=== PATIENT | female | born 1930 | race Caucasian/White ===

== ENCOUNTER 2017-03-26 08:10 | Inpatient (IN) | payer MEDICARE, OTHER ==
[~2017-03-26] VITALS: Ht 165.1 cm; Wt 65.2 kg
[~2017-03-26 08:10] MED LIST: CIPR500T87 PO; HYDR1TAB12 PO; LISI-167 PO; MOME13HF2 INH; NEBULIZER INH; TRAM50TA2 PO; [UNRECOGNIZED DRUG - REMARK] PO
[2017-03-26] MEDS ORDERED: SODIUM CHLORIDE 0.9% 1,000 ML IV ONE ×2 (08:37→10:20)
[2017-03-26] MEDS ORDERED: ONDANSETRON 2MG/ML, 2ML ONE (08:55)
[2017-03-26] MEDS ORDERED: SODIUM CHLORIDE FLUSH 10ML SYR IVF ONE (09:00)
[2017-03-26] MEDS ORDERED: SODIUM CHLORIDE 0.9% 1,000ML IVBOLUS ONE ×2 (09:00→10:00)
[2017-03-26] MEDS ORDERED: ONDANSETRON 2MG/ML, 2ML IVPush ONE (09:00)
[2017-03-26 09:12] LABS: ASPARTATE AMINO TRANSFERASE 11 U/L (15-37); BLOOD UREA NITROGEN 78 mg/dL (7-18)
[2017-03-26 09:18] LABS: IS PT STATUS REG ER OR PRE ER? YES
[2017-03-26] MEDS ORDERED: METRONIDAZOLE PMX 500MG/100ML 100 ML ONE (09:56)
[2017-03-26] MEDS ORDERED: METRONIDAZOLE PMX 500MG/100ML 100 ML IVPB ONE (10:00)
[2017-03-26] MEDS ORDERED: CEFEPIME 1 GM in DEXTROSE 5% 100 ML IVPB ONE (10:00)
[2017-03-26] MEDS ORDERED: LIDOCAINE GEL 2%, 5ML ONE (10:22)
[2017-03-26] MEDS ORDERED: SODIUM CHLORIDE FLUSH 10ML SYR IVF PRN (10:30)
[2017-03-26] MEDS ORDERED: SULF1TAB3 PO (10:40)
[2017-03-26] MEDS ORDERED: BUPIVACAINE/PF-EPI 0.25% 1:200K ONE (11:00)
[2017-03-26] MEDS ORDERED: BACITRACIN 50,000 UNIT ONE (11:00)
[2017-03-26] MEDS ORDERED: KETAMINE 10 MG/ML, 20ML ONE (11:17)
[2017-03-26] MEDS ORDERED: FENTANYL PF 250 MCG/5ML ONE (11:18)
[2017-03-26] MEDS ORDERED: MIDAZOLAM 1 MG/ML, 2ML ONE (11:18)
[2017-03-26] MEDS ORDERED: AMIODARONE 50 MG/ML, 3ML ONE (11:37)
[2017-03-26] MEDS ORDERED: MAGNESIUM SULFATE 1 GM/2 ML ONE (11:37)
[2017-03-26] MEDS ORDERED: ALBUMIN HUMAN 5% 0 ML ONE (11:37)
[2017-03-26] MEDS ORDERED: NOREPINEPHRINE 4 MG in SODIUM CHLORIDE 0.9% 246 ML IV PRN (12:30)
[2017-03-26] MEDS ORDERED: hydrALAzine 20 MG/ML, 1ML IV PRN (13:30)
[2017-03-26] MEDS ORDERED: HYDROmorphone 1 MG/ML, 1ML IV PRN (13:30)
[2017-03-26] MEDS ORDERED: ACETAMINOPHEN 325 MG TABLET PO PRN ×2 (13:30→14:30)
[2017-03-26] MEDS ORDERED: LABETALOL 5MG/ML, 20ML IV PRN (13:30)
[2017-03-26] MEDS ORDERED: PROMETHAZINE 25 MG/ML, 1ML IV PRN (13:30)
[2017-03-26] MEDS ORDERED: ONDANSETRON 2MG/ML, 2ML IVPush PRN (13:30)
[2017-03-26] MEDS ORDERED: EPHEDRINE 50 MG/ML, 1ML IVPush PRN (13:30)
[2017-03-26] MEDS ORDERED: FENTANYL PF 100 MCG/2ML IV PRN (13:30)
[2017-03-26] MEDS ORDERED: TEMAZEPAM 15 MG CAPSULE PO PRN (14:30)
[2017-03-26] MEDS ORDERED: POLYETHYLENE GLYCOL 17 GM PACKET PO PRN (14:30)
[2017-03-26] MEDS ORDERED: PLEASE ENTER ALLERGIES MC SCH ×4 (15:00→16:00)
[2017-03-26] MEDS ORDERED: SUCCINYLCHOLINE 20 MG/ML, 10ML ONE (16:07)
[2017-03-26] MEDS ORDERED: EPHEDRINE 50 MG/ML, 1ML ONE (16:07)
[2017-03-26] MEDS ORDERED: PHENYLEPHRINE 10 MG/ML ONE (16:07)
[2017-03-26] MEDS ORDERED: ROCURONIUM 10 MG/ML ONE (16:07)
[2017-03-26] MEDS ORDERED: GLYCOPYRROLATE 0.2MG/1ML ONE (16:07)
[2017-03-26] MEDS ORDERED: NEOSTIGMINE 1 MG/ML, 10ML ONE (16:07)
[2017-03-26] MEDS ORDERED: PROPOFOL 10 MG/ML, 20ML ONE (16:07)
[2017-03-26] MEDS ORDERED: SODIUM BICARB 8.4%, 50ML SYRINGE ONE (16:07)
[2017-03-26] MEDS: morphine SULFATE 10 MG/ML, 1ML IVPush PRN ×3 (17:07→22:44)
[2017-03-26] MEDS: PIPERACILLIN/TAZO/PMX 2.25GM 50 ML IVPB SCH (17:09)
[2017-03-26] MEDS: SODIUM BICARB 8.4%,50ML SYR. 75 MEQ in SODIUM CHLORIDE 0.45% 1,000 ML IV SCH (20:32)
[2017-03-26] MEDS: FAMOTIDINE 20 MG TABLET PO SCH (20:45)
[2017-03-26] MEDS ORDERED: FAMOTIDINE 20 MG TABLET PO SCH (21:00)
[2017-03-26] MEDS: HEPARIN 5,000 UNITS/ML, 1ML SQ SCH (23:25)
[2017-03-27] MEDS: ALBUTEROL/IPRATROPIUM 2.5MG/0.5MG, 3 ML INLINE SCH (00:40)
[2017-03-27] MEDS ORDERED: NOREPINEPHRINE 1 MG/ML, 4ML ONE (01:18)
[2017-03-27] MEDS: morphine SULFATE 10 MG/ML, 1ML IVPush PRN ×3 (01:45→16:57)
[2017-03-27] MEDS: NOREPINEPHRINE 4 MG in SODIUM CHLORIDE 0.9% 246 ML IV PRN ×5 (02:06→22:34)
[2017-03-27] MEDS ORDERED: HYDROmorphone 1 MG/ML, 1ML ONE (02:20)
[2017-03-27] MEDS ORDERED: DIGOXIN 0.25 MG/ML, 2ML ONE (02:21)
[2017-03-27] MEDS ORDERED: DIGOXIN 0.25 MG/ML, 2ML IVPush ONE (02:30)
[2017-03-27] MEDS ORDERED: HYDROmorphone 2 MG/ML, 1ML IVPush PRN (02:30)
[2017-03-27] MEDS: PIPERACILLIN/TAZO/PMX 2.25GM 50 ML IVPB SCH ×5 (02:46→22:37)
[2017-03-27 04:00] VITALS: BP 123/63
[2017-03-27 04:49] LABS: BLOOD UREA NITROGEN 71 mg/dL (7-18)
[2017-03-27 04:53] LABS: ASPARTATE AMINO TRANSFERASE 20 U/L (15-37); TOTAL IRON BINDING CAPACITY 286 mcg/dL (250-450)
[2017-03-27] MEDS: SODIUM BICARB 8.4%,50ML SYR. 75 MEQ in SODIUM CHLORIDE 0.45% 1,000 ML IV SCH ×2 (06:25→08:25)
[2017-03-27] MEDS: HEPARIN 5,000 UNITS/ML, 1ML SQ SCH (09:00)
[2017-03-27] MEDS: SENNA/DOCUSATE TABLET PO SCH (09:00)
[2017-03-27] MEDS ORDERED: KETAMINE 10 MG/ML, 20ML ONE (14:46)
[2017-03-27] MEDS ORDERED: MIDAZOLAM 1 MG/ML, 2ML ONE ×2 (14:46→17:36)
[2017-03-27] MEDS ORDERED: FENTANYL PF 250 MCG/5ML ONE (14:46)
[2017-03-27] MEDS ORDERED: ALBUMIN HUMAN 5% 1,000 ML ONE (15:02)
[2017-03-27] MEDS ORDERED: AMIODARONE 50 MG/ML, 3ML ONE (15:03)
[2017-03-27] MEDS ORDERED: MAGNESIUM SULFATE 1 GM/2 ML ONE (15:03)
[2017-03-27] MEDS ORDERED: VASOPRESSIN 20 UNIT/ML, 1ML ONE (15:04)
[2017-03-27] MEDS ORDERED: THROMBIN 5,000 UNIT VIAL TP ONE (15:28)
[2017-03-27] MEDS ORDERED: LIDOCAINE/PF 1%-EPI 1:200K, 30ML ONE (15:28)
[2017-03-27] MEDS ORDERED: VASOPRESSIN 100 UNIT in SODIUM CHLORIDE 0.9% 495 ML IV PRN ×2 (15:30→21:45)
[2017-03-27] MEDS: SODIUM BICARBONATE 8.4% 150 MEQ in DEXTROSE 5% 1,000 ML IV SCH ×2 (15:43→22:33)
[2017-03-27] MEDS: HYDROCORTISONE 100 MG INJ. IVPush SCH (16:48)
[2017-03-27] MEDS ORDERED: ROCURONIUM 10 MG/ML ONE (17:44)
[2017-03-27 19:49] LABS: ABG COLLECTION SITE ARTERIAL LINE
[2017-03-27] MEDS: FAMOTIDINE 20 MG TABLET PO SCH (21:00)
[2017-03-27 21:30] LABS: DIFF TOTAL CELLS COUNTED 200 CELL DIFF
[2017-03-27 21:33] LABS: VERIFY COUNTS? YES
[2017-03-27] MEDS ORDERED: PROPOFOL 100 ML IV PRN (21:45)
[2017-03-27] MEDS ORDERED: BISACODYL 10 MG SUPP PR PRN (22:00)
[2017-03-27] MEDS ORDERED: SENNA/DOCUSATE TABLET NG PRN (22:00)
[2017-03-27] MEDS ORDERED: LACTULOSE 20 GM/30 ML UDC NG PRN (22:00)
[2017-03-27] MEDS ORDERED: PHARMACY MAY ADJ FOR RENAL FX MC SCH (22:00)
[2017-03-27] MEDS ORDERED: SODIUM CHLORIDE 0.9% 1,000ML IVBOLUS ONE (22:00)
[2017-03-27] MEDS ORDERED: SENNOSIDES 8.8 MG/5 ML ORAL SOL NG PRN (22:00)
[2017-03-27] MEDS ORDERED: LIDOCAINE-MPF 1%, 2ML ENDO PRN (22:00)
[2017-03-27] MEDS: LACTATED RINGERS 1,000 ML IV SCH (23:00)
[2017-03-27 23:36] LABS: ASPARTATE AMINO TRANSFERASE 13 U/L (15-37); BLOOD UREA NITROGEN 46 mg/dL (7-18)
[2017-03-28] MEDS: HYDROmorphone 1 MG/ML, 1ML IV PRN ×2 (00:54→10:25)
[2017-03-28] MEDS: HYDROCORTISONE 100 MG INJ. IVPush SCH ×2 (00:55→06:39)
[2017-03-28] MEDS: ALBUTEROL/IPRATROPIUM 2.5MG/0.5MG, 3 ML INLINE SCH ×3 (02:50→10:50)
[2017-03-28 03:43] LABS: ABG COLLECTION SITE ARTERIAL LINE
[2017-03-28 03:56] LABS: ASPARTATE AMINO TRANSFERASE 21 U/L (15-37); BLOOD UREA NITROGEN 43 mg/dL (7-18)
[2017-03-28] MEDS: PIPERACILLIN/TAZO/PMX 2.25GM 50 ML IVPB SCH ×2 (03:58→10:13)
[2017-03-28 04:00] VITALS: BP 138/73
[2017-03-28] MEDS: SODIUM BICARBONATE 8.4% 150 MEQ in DEXTROSE 5% 1,000 ML IV SCH (06:37)
[2017-03-28] MEDS ORDERED: MAGNESIUM SULFATE PMX 2GM/50ML 50 ML IV ONE (07:30)
[2017-03-28] MEDS: LACTATED RINGERS 1,000 ML IV SCH ×2 (08:35→17:13)
[2017-03-28] MEDS: PANTOPRAZOLE 40 MG IV IV SCH (09:18)
[2017-03-28] MEDS: SENNA/DOCUSATE TABLET PO SCH (10:29)
[2017-03-28] MEDS: NOREPINEPHRINE 4 MG in SODIUM CHLORIDE 0.9% 246 ML IV PRN ×2 (11:29→17:11)
[2017-03-28] MEDS: ALBUTEROL/IPRATROPIUM 2.5MG/0.5MG, 3 ML NPPB SCH ×2 (15:00→20:11)
[2017-03-28] MEDS ORDERED: PIPERACILLIN/TAZO 2.25 GM in SODIUM CHLORIDE 0.9% 100 ML IVPB SCH ×3 (15:00→22:00)
[2017-03-28 15:05] LABS: BLOOD UREA NITROGEN 34 mg/dL (7-18)
[2017-03-28] MEDS: FENTANYL PF 100 MCG/2ML IVPush PRN ×2 (15:32→18:49)
[2017-03-28] MEDS: PIPERACILLIN/TAZO 2.25 GM in SODIUM CHLORIDE 0.9% 100 ML IVPB SCH ×2 (15:41→21:59)
[2017-03-28] MEDS ORDERED: FLUCONAZOLE 200 MG/100 ML 100 ML IV SCH (16:00)
[2017-03-28] MEDS ORDERED: POTASSIUM CHLORIDE 20 MEQ TAB.ER.PRT PO ONE (16:00)
[2017-03-28] MEDS: FLUCONAZOLE 100MG/50ML 100 MG in BAG 1 EACH IVPB SCH (17:11)
[2017-03-28] MEDS: morphine SULFATE 10 MG/ML, 1ML IVPush PRN (20:15)
[2017-03-29] MEDS ORDERED: AMIODARONE 150 MG in DEXTROSE 5% 100 ML IV ONE (00:30)
[2017-03-29] MEDS: FILTER 0.22 MICRON IV PRN (01:06)
[2017-03-29] MEDS: AMIODARONE 900 MG in DEXTROSE 5% 482 ML IV PRN (01:11)
[2017-03-29] MEDS: morphine SULFATE 10 MG/ML, 1ML IVPush PRN ×2 (02:37→08:49)
[2017-03-29] MEDS: PIPERACILLIN/TAZO 2.25 GM in SODIUM CHLORIDE 0.9% 100 ML IVPB SCH ×4 (03:49→21:15)
[2017-03-29] MEDS: LACTATED RINGERS 1,000 ML IV SCH ×2 (04:55→15:57)
[2017-03-29 06:37] LABS: BLOOD UREA NITROGEN 28 mg/dL (7-18)
[2017-03-29] MEDS: ALBUTEROL/IPRATROPIUM 2.5MG/0.5MG, 3 ML NPPB SCH ×5 (06:55→20:00)
[2017-03-29] MEDS: SENNA/DOCUSATE TABLET PO SCH (08:51)
[2017-03-29] MEDS ORDERED: POTASSIUM CHLORIDE 20 MEQ TAB.ER.PRT PO ONE (09:00)
[2017-03-29] MEDS: PANTOPRAZOLE 40 MG IV IV SCH (09:10)
[2017-03-29] MEDS: HEPARIN 25,000 UNITS/500ML PMX 500 ML IV PRN (10:51)
[2017-03-29] MEDS: OXYcodone IR 5MG TABLET PO PRN ×3 (12:22→21:35)
[2017-03-29] MEDS: FLUCONAZOLE 100MG/50ML 100 MG in BAG 1 EACH IVPB SCH (17:10)
[2017-03-30] MEDS: OXYcodone IR 5MG TABLET PO PRN ×3 (02:17→12:30)
[2017-03-30] MEDS: FILTER 0.22 MICRON IV PRN (05:12)
[2017-03-30] MEDS: AMIODARONE 900 MG in DEXTROSE 5% 482 ML IV PRN (05:15)
[2017-03-30] MEDS: LACTATED RINGERS 1,000 ML IV SCH ×2 (05:15→11:00)
[2017-03-30] MEDS: ALBUTEROL/IPRATROPIUM 2.5MG/0.5MG, 3 ML NPPB SCH ×4 (06:55→20:00)
[2017-03-30] MEDS: PIPERACILLIN/TAZO 2.25 GM in SODIUM CHLORIDE 0.9% 100 ML IVPB SCH ×3 (07:30→20:26)
[2017-03-30] MEDS: SENNA/DOCUSATE TABLET PO SCH (09:00)
[2017-03-30] MEDS: PANTOPRAZOLE 40 MG IV IV SCH (09:00)
[2017-03-30] MEDS ORDERED: VANCOMYCIN 50 MG/ML ORAL SUSP PO SCH (10:00)
[2017-03-30] MEDS ORDERED: DIGOXIN 0.25 MG/ML, 2ML IVPush ONE (11:00)
[2017-03-30] MEDS ORDERED: DIGOXIN 0.25 MG/ML, 2ML ONE (11:55)
[2017-03-30] MEDS: VANCOMYCIN 50 MG/ML ORAL SUSP PO SCH ×2 (12:15→17:54)
[2017-03-30] MEDS: DIGOXIN 0.25 MG/ML, 2ML IVPush SCH ×2 (15:33→20:06)
[2017-03-30] MEDS: FLUCONAZOLE 100MG/50ML 100 MG in BAG 1 EACH IVPB SCH (17:11)
[2017-03-30] MEDS ORDERED: SODIUM CHLORIDE 0.9%, 250ML IVBOLUS ONE (17:30)
[2017-03-30] MEDS: HEPARIN 25,000 UNITS/500ML PMX 500 ML IV PRN (17:58)
[2017-03-30 18:57] LABS: HIT LOT CART23835/KIT23844
[2017-03-30] MEDS: ONDANSETRON 2MG/ML, 2ML IVPush PRN (21:41)
[2017-03-31] MEDS: PIPERACILLIN/TAZO 2.25 GM in SODIUM CHLORIDE 0.9% 100 ML IVPB SCH ×3 (01:08→13:01)
[2017-03-31 04:30] LABS: ABG COLLECTION SITE RIGHT BRACHIAL
[2017-03-31 04:42] LABS: ASPARTATE AMINO TRANSFERASE 21 U/L (15-37); BLOOD UREA NITROGEN 16 mg/dL (7-18)
[2017-03-31] MEDS: VANCOMYCIN 50 MG/ML ORAL SUSP PO SCH ×4 (05:37→18:22)
[2017-03-31] MEDS: OXYcodone IR 5MG TABLET PO PRN ×4 (05:53→19:26)
[2017-03-31] MEDS ORDERED: ALBUTEROL/IPRATROPIUM 2.5MG/0.5MG, 3 ML ONE (06:32)
[2017-03-31] MEDS: PANTOPRAZOLE 40 MG IV IV SCH (08:12)
[2017-03-31] MEDS: SENNA/DOCUSATE TABLET PO SCH (08:12)
[2017-03-31 08:29] LABS: HIT RESULT NEGATIVE (NEGATIVE)
[2017-03-31 08:30] LABS: HIT OBC PASS
[2017-03-31] MEDS ORDERED: POTASSIUM CHLORIDE 20 MEQ PACKET PO ONE (08:30)
[2017-03-31] MEDS ORDERED: MAGNESIUM SULFATE PMX 2GM/50ML 50 ML IV ONE (08:30)
[2017-03-31] MEDS ORDERED: ALBUTEROL/IPRATROPIUM 2.5MG/0.5MG, 3 ML NPPB SCH (09:00)
[2017-03-31] MEDS ORDERED: ALBUTEROL/IPRATROPIUM 2.5MG/0.5MG, 3 ML NPPB PRN (09:00)
[2017-03-31] MEDS: DIGOXIN 0.25 MG TABLET PO SCH (09:07)
[2017-03-31] MEDS: AMIODARONE 900 MG in DEXTROSE 5% 482 ML IV PRN (12:23)
[2017-03-31] MEDS: LACTATED RINGERS 1,000 ML IV SCH (13:02)
[2017-03-31] MEDS: HEPARIN 25,000 UNITS/500ML PMX 500 ML IV PRN (16:26)
[2017-03-31] MEDS: FLUCONAZOLE 100MG/50ML 100 MG in BAG 1 EACH IVPB SCH (17:16)
[2017-03-31] MEDS ORDERED: PIPERACILLIN/TAZO 3.375 GM in SODIUM CHLORIDE 0.9% 50 ML IV SCH (20:00)
[2017-03-31] MEDS ORDERED: FAMOTIDINE 20 MG/2 ML IVPush SCH (21:00)
[2017-04-01] MEDS: VANCOMYCIN 50 MG/ML ORAL SUSP PO SCH ×4 (00:35→18:36)
[2017-04-01] MEDS: PIPERACILLIN/TAZO/PMX 3.375GM 50 ML IV SCH ×4 (02:31→21:26)
[2017-04-01 04:20] LABS: ABG COLLECTION SITE RIGHT RADIAL; COLLATERAL CIRCULATION TESTING NORMAL
[2017-04-01] MEDS: LACTATED RINGERS 1,000 ML IV SCH (05:00)
[2017-04-01 06:04] LABS: ASPARTATE AMINO TRANSFERASE 19 U/L (15-37); BLOOD UREA NITROGEN 13 mg/dL (7-18)
[2017-04-01] MEDS: SENNA/DOCUSATE TABLET PO SCH (08:35)
[2017-04-01] MEDS: FAMOTIDINE 20 MG/2 ML IVPush SCH (08:36)
[2017-04-01] MEDS: OXYcodone IR 5MG TABLET PO PRN ×2 (08:36→21:37)
[2017-04-01] MEDS: DIGOXIN 0.25 MG TABLET PO SCH (08:36)
[2017-04-01] MEDS ORDERED: POTASSIUM CHLORIDE 20 MEQ TAB.ER.PRT PO ONE ×2 (09:00→13:00)
[2017-04-01 11:41] LABS: BLOOD UREA NITROGEN 23 mg/dL (7-18)
[2017-04-01 11:47] LABS: ABG COLLECTION SITE RIGHT BRACHIAL
[2017-04-01] MEDS ORDERED: GLYCERIN ADULT SUPP PR ONE (16:00)
[2017-04-01] MEDS ORDERED: PINK LADY ENEMA 1,000 ML PR PRN (16:00)
[2017-04-01] MEDS: FLUCONAZOLE 100MG/50ML 100 MG in BAG 1 EACH IVPB SCH (17:51)
[2017-04-02] MEDS: VANCOMYCIN 50 MG/ML ORAL SUSP PO SCH ×4 (00:23→18:33)
[2017-04-02] MEDS: PIPERACILLIN/TAZO/PMX 3.375GM 50 ML IV SCH ×4 (02:22→20:04)
[2017-04-02 04:28] LABS: BLOOD UREA NITROGEN 14 mg/dL (7-18)
[2017-04-02] MEDS: LACTATED RINGERS 1,000 ML IV SCH (05:14)
[2017-04-02] MEDS: SENNA/DOCUSATE TABLET PO SCH (09:00)
[2017-04-02] MEDS: DIGOXIN 0.25 MG TABLET PO SCH (09:27)
[2017-04-02] MEDS: FAMOTIDINE 20 MG/2 ML IVPush SCH (09:27)
[2017-04-02] MEDS: ONDANSETRON 2MG/ML, 2ML IVPush PRN (12:41)
[2017-04-02] MEDS: FLUCONAZOLE 100MG/50ML 100 MG in BAG 1 EACH IVPB SCH (18:33)
[2017-04-03] MEDS: VANCOMYCIN 50 MG/ML ORAL SUSP PO SCH ×5 (00:11→23:53)
[2017-04-03] MEDS: PIPERACILLIN/TAZO/PMX 3.375GM 50 ML IV SCH ×4 (01:56→20:17)
[2017-04-03] MEDS: LACTATED RINGERS 1,000 ML IV SCH ×2 (02:14→17:00)
[2017-04-03 04:28] LABS: BLOOD UREA NITROGEN 11 mg/dL (7-18)
[2017-04-03] MEDS ORDERED: POTASSIUM CHLORIDE 20 MEQ TAB.ER.PRT PO ONE (05:00)
[2017-04-03] MEDS: POTASSIUM CHLORIDE 20 MEQ in LACTATED RINGERS 1,000 ML IV SCH (05:50)
[2017-04-03] MEDS: SENNA/DOCUSATE TABLET PO SCH (09:00)
[2017-04-03] MEDS: FAMOTIDINE 20 MG/2 ML IVPush SCH (09:54)
[2017-04-03] MEDS: DIGOXIN 0.25 MG TABLET PO SCH (09:54)
[2017-04-03] MEDS ORDERED: MAGNESIUM SULFATE PMX 4GM/100M 100 ML IV ONE (11:00)
[2017-04-03] MEDS: FLUCONAZOLE 100MG/50ML 100 MG in BAG 1 EACH IVPB SCH (16:45)
[2017-04-03 19:16] VITALS: BP 107/64
[2017-04-04 01:08] VITALS: BP 121/73
[2017-04-04] MEDS: PIPERACILLIN/TAZO/PMX 3.375GM 50 ML IV SCH ×4 (02:03→20:03)
[2017-04-04 05:03] LABS: BLOOD UREA NITROGEN 9 mg/dL (7-18)
[2017-04-04] MEDS ORDERED: POTASSIUM CHLORIDE 20 MEQ TAB.ER.PRT PO ONE ×2 (05:30→16:30)
[2017-04-04] MEDS: VANCOMYCIN 50 MG/ML ORAL SUSP PO SCH ×4 (06:05→23:10)
[2017-04-04] MEDS: FAMOTIDINE 20 MG/2 ML IVPush SCH (08:32)
[2017-04-04] MEDS: DIGOXIN 0.25 MG TABLET PO SCH (08:32)
[2017-04-04] MEDS: SENNA/DOCUSATE TABLET PO SCH (08:32)
[2017-04-04 08:43] VITALS: BP 107/69
[2017-04-04] MEDS: POTASSIUM CHLORIDE 20 MEQ in LACTATED RINGERS 1,000 ML IV SCH (11:01)
[2017-04-04 13:48] VITALS: BP 96/61
[2017-04-04] MEDS: FLUCONAZOLE 100MG/50ML 100 MG in BAG 1 EACH IVPB SCH (14:12)
[2017-04-04 19:29] VITALS: BP 102/65
[2017-04-04] MEDS: POTASSIUM CHLORIDE 20 MEQ TAB.ER.PRT PO SCH ×2 (20:03→23:10)
[2017-04-05 02:21] VITALS: BP 105/61
[2017-04-05] MEDS: PIPERACILLIN/TAZO/PMX 3.375GM 50 ML IV SCH ×3 (02:22→16:50)
[2017-04-05 05:30] LABS: BLOOD UREA NITROGEN 11 mg/dL (7-18)
[2017-04-05] MEDS: VANCOMYCIN 50 MG/ML ORAL SUSP PO SCH ×4 (05:30→23:16)
[2017-04-05] MEDS: SENNA/DOCUSATE TABLET PO SCH (07:47)
[2017-04-05 08:35] VITALS: BP 118/73
[2017-04-05] MEDS: FAMOTIDINE 20 MG/2 ML IVPush SCH (09:07)
[2017-04-05] MEDS: POTASSIUM CHLORIDE 20 MEQ TAB.ER.PRT PO SCH ×2 (09:09→16:51)
[2017-04-05] MEDS ORDERED: MAGNESIUM SULFATE PMX 2GM/50ML 50 ML IV ONE (09:30)
[2017-04-05] MEDS ORDERED: SENNA/DOCUSATE TABLET PO PRN (09:38)
[2017-04-05] MEDS ORDERED: POTASSIUM PHOSPHATE 22 MEQ in SODIUM CHLORIDE 0.9% 500 ML IV ONE (10:00)
[2017-04-05] MEDS: LACTOBACILLUS CHEW TABLET PO SCH ×3 (11:53→19:51)
[2017-04-05] MEDS: DIGOXIN 0.25 MG TABLET PO SCH (11:54)
[2017-04-05 15:24] VITALS: BP 119/80
[2017-04-05] MEDS: NS + 40MEQ KCL 1,000 ML IV SCH ×2 (16:50→17:00)
[2017-04-05] MEDS: NYSTATIN CRM 15GM TP SCH ×2 (17:02→19:51)
[2017-04-05] MEDS: FLUCONAZOLE 100MG/50ML 100 MG in BAG 1 EACH IVPB SCH (17:05)
[2017-04-05 20:00] VITALS: BP 122/70
[2017-04-06] MEDS: NS + 40MEQ KCL 1,000 ML IV SCH ×2 (00:54→22:12)
[2017-04-06] MEDS: PIPERACILLIN/TAZO/PMX 3.375GM 50 ML IV SCH ×4 (00:54→23:44)
[2017-04-06 00:59] VITALS: BP 112/72
[2017-04-06] MEDS ORDERED: POTASSIUM CHLORIDE 40 MEQ in LACTATED RINGERS 1,000 ML IV SCH (05:00)
[2017-04-06 05:56] LABS: BLOOD UREA NITROGEN 10 mg/dL (7-18)
[2017-04-06] MEDS: VANCOMYCIN 50 MG/ML ORAL SUSP PO SCH ×4 (06:23→23:44)
[2017-04-06] MEDS: NYSTATIN 500,000 UNITS/5 ML UDC PO SCH ×4 (06:24→19:57)
[2017-04-06] MEDS ORDERED: POTASSIUM PHOSPHATE 44 MEQ in SODIUM CHLORIDE 0.9% 500 ML IV ONE (07:00)
[2017-04-06] MEDS: FAMOTIDINE 20 MG/2 ML IVPush SCH (08:11)
[2017-04-06] MEDS: POTASSIUM CHLORIDE 20 MEQ TAB.ER.PRT PO SCH ×3 (08:11→23:44)
[2017-04-06] MEDS: DIGOXIN 0.25 MG TABLET PO SCH (08:11)
[2017-04-06] MEDS: LACTOBACILLUS CHEW TABLET PO SCH ×3 (08:11→19:57)
[2017-04-06 09:43] VITALS: BP 112/72
[2017-04-06] MEDS: NYSTATIN CRM 15GM TP SCH ×2 (11:52→19:57)
[2017-04-06 12:34] VITALS: BP 127/67
[2017-04-06 18:58] VITALS: BP 114/73
[2017-04-06] MEDS: FLUCONAZOLE 100MG/50ML 100 MG in BAG 1 EACH IVPB SCH (19:57)
[2017-04-07 02:00] VITALS: BP 112/70
[2017-04-07 05:27] LABS: BLOOD UREA NITROGEN 9 mg/dL (7-18)
[2017-04-07] MEDS: VANCOMYCIN 50 MG/ML ORAL SUSP PO SCH ×2 (05:43→12:52)
[2017-04-07] MEDS: PIPERACILLIN/TAZO/PMX 3.375GM 50 ML IV SCH ×2 (05:44→12:52)
[2017-04-07 08:23] VITALS: BP 115/67
[2017-04-07] MEDS ORDERED: POTASSIUM CHLORIDE 20 MEQ in SODIUM CHLORIDE 0.45% 1,000 ML IV SCH (08:30)
[2017-04-07] MEDS ORDERED: FAMOTIDINE 20 MG TABLET PO SCH (09:00)
[2017-04-07] MEDS: POTASSIUM CHLORIDE 20 MEQ TAB.ER.PRT PO SCH (09:10)
[2017-04-07] MEDS: DIGOXIN 0.25 MG TABLET PO SCH (09:10)
[2017-04-07] MEDS: NYSTATIN 500,000 UNITS/5 ML UDC PO SCH (09:10)
[2017-04-07] MEDS: LACTOBACILLUS CHEW TABLET PO SCH (09:10)
[2017-04-07] MEDS: NYSTATIN CRM 15GM TP SCH (09:11)
[2017-04-07] MEDS ORDERED: OXYC5TAB3 PO (09:25)
[2017-04-07] MEDS ORDERED: FAMO20TA7 PO (09:25)
[2017-04-07] MEDS ORDERED: POTA20TA6 PO (09:25)
[2017-04-07] MEDS ORDERED: DIGO250T PO (09:25)
[2017-04-07] MEDS ORDERED: ONDA4VIA4 IVPush (09:25)
[2017-04-07] MEDS ORDERED: ACID1TAB7 PO (09:25)
[2017-04-07] MEDS ORDERED: TEMA15CA6 PO (09:25)
[2017-04-07] MEDS ORDERED: VANC1VIA3 PO (09:25)
[2017-04-07] MEDS ORDERED: MORP10VI10 IVPush (09:25)
[2017-04-07] MEDS ORDERED: SENN1TAB7 PO (09:25)
[2017-04-07] MEDS ORDERED: BISA10SU65 PR (09:25)
[2017-04-07] MEDS ORDERED: ACET325T14 PO (09:25)
[2017-04-07 12:06] VITALS: BP 115/75
[2017-04-07] MEDS ORDERED: NS + 40MEQ KCL 1,000 ML IV SCH (13:30)
== END 2017-04-07 14:59 | DRG 653 ==
LOC: ED 09:22 → EDIP 10:20 → CCU 15:54 → 5SO 04-03 16:57
PROVIDERS: ADMIT Internal Medicine; ATTEND Internal Medicine
PROC: 0WJP4ZZ Inspection of Gastrointestinal Tract, Percutaneous Endoscopic Approach (ICD-10-PCS; principal; 2017-03-26 10:00)
PROC: 0DBB0ZZ Excision of Ileum, Open Approach (ICD-10-PCS; 2017-03-27)
PROC: 0T1807C Bypass Bilateral Ureters to Ileocutaneous with Autologous Tissue Substitute, Open Approach (ICD-10-PCS; 2017-03-27)
PROC: 0TBB0ZZ Excision of Bladder, Open Approach (ICD-10-PCS; 2017-03-27)
PROC: 0T9B70Z Drainage of Bladder with Drainage Device, Via Natural or Artificial Opening (ICD-10-PCS; 2017-04-05)
PROC: 0T780DZ Dilation of Bilateral Ureters with Intraluminal Device, Open Approach (ICD-10-PCS; 2017-04-05)
PROC: 30233N1 Transfusion of Nonautologous Red Blood Cells into Peripheral Vein, Percutaneous Approach (ICD-10-PCS; 2017-04-06)
DX: C67.9 Malignant neoplasm of bladder, unspecified (principal); A41.9 Sepsis, unspecified organism; E43 Unspecified severe protein-calorie malnutrition; K56.2 Volvulus; K63.1 Perforation of intestine (nontraumatic); N17.0 Acute kidney failure with tubular necrosis; R65.21 Severe sepsis with septic shock; K65.9 Peritonitis, unspecified; J96.00 Acute respiratory failure, unspecified whether with hypoxia or hypercapnia; K65.0 Generalized (acute) peritonitis; E87.1 Hypo-osmolality and hyponatremia; E87.0 Hyperosmolality and hypernatremia; J98.11 Atelectasis; N32.1 Vesicointestinal fistula; Z99.11 Dependence on respirator [ventilator] status; A04.7 Enterocolitis due to Clostridium difficile; K56.7 Ileus, unspecified; J44.9 Chronic obstructive pulmonary disease, unspecified; D63.8 Anemia in other chronic diseases classified elsewhere; D69.6 Thrombocytopenia, unspecified; E83.39 Other disorders of phosphorus metabolism; E83.42 Hypomagnesemia; E86.0 Dehydration; E87.6 Hypokalemia; I12.9 Hypertensive chronic kidney disease with stage 1 through stage 4 chronic kidney disease, or unspecified chronic kidney disease; I48.0 Paroxysmal atrial fibrillation; L30.9 Dermatitis, unspecified; N18.9 Chronic kidney disease, unspecified; R32 Unspecified urinary incontinence; Z66 Do not resuscitate; N84.0 Polyp of corpus uteri; N83.202 Unspecified ovarian cyst, left side; N83.201 Unspecified ovarian cyst, right side; N80.9 Endometriosis, unspecified; D25.9 Leiomyoma of uterus, unspecified; Z79.82 Long term (current) use of aspirin; Z82.49 Family history of ischemic heart disease and other diseases of the circulatory system; Z87.891 Personal history of nicotine dependence; Z93.6 Other artificial openings of urinary tract status; Z68.23 Body mass index [BMI] 23.0-23.9, adult; Z79.899 Other long term (current) drug therapy
CPT/HCPCS: 36415; 36600; 71010; 74000; 74022; 80048; 80053; 81001; 82040; 82306; 82330; 82533; 82570; 82728; 82803; 82947; 82962; 83540; 83550; 83605; 83690; 83735; 83880; 83970; 84100; 84132; 84145; 84295; 84478; 84484; 84550; 85014; 85025; 85520; 86022; 86850; 86900; 86923; 87040; 87070; 87081; 87086; 87205; 87324; 87493; 88305; 88307; 88309; 93005; 94002; 94003; 94150; 94640; 96361; 96374; C1729; J1170; J1644; J2250; J2405; J2543; J2704; J2710; J3010; J3370; J3475; J3480; J3490; J7070; J7620; P9045; C1760; C1765; C2617; C9113; J0282; J0330; J1160; J1450; J1720; J2270; J2370; J7030; J7040; J7050; J7060; J7120; P9016; S0028

== ENCOUNTER 2017-06-15 11:13 | Emergency (ER) | payer MEDICARE, OTHER ==
[~2017-06-15] VITALS: Ht 165.1 cm; Wt 52.0 kg
[~2017-06-15 11:13] MED LIST changes: +ACET325T14 PO; +ACID1TAB7 PO; +BISA10SU65 PR; +DIGO250T PO; +FAMO20TA7 PO; +MORP10VI10 IVPush; +ONDA4VIA4 IVPush; +OXYC5TAB3 PO; +POTA20TA6 PO; +SENN1TAB7 PO; +SULF-169 PO; +TEMA15CA6 PO; +VANC1VIA3 PO
[2017-06-15] MEDS ORDERED: SODIUM CHLORIDE 0.9% 1,000ML IVBOLUS ONE (12:30)
[2017-06-15] MEDS ORDERED: SODIUM CHLORIDE FLUSH 10ML SYR IVF ONE (12:30)
[2017-06-15 13:05] LABS: HEMATOCRIT 41.2 % (34.6-47.8); HEMOGLOBIN 13.1 g/dL (11.7-16.4)
[2017-06-15 13:16] LABS: BLOOD UREA NITROGEN 22 mg/dL (7-18)
[2017-06-15 13:21] LABS: IS PT STATUS REG ER OR PRE ER? YES
[2017-06-15 14:15] VITALS: BP 115/68
== END 2017-06-15 14:31 | disposition home or self-care (01) ==
LOC: ED 13:02
DX: I95.1 Orthostatic hypotension (principal); I10 Essential (primary) hypertension; J44.9 Chronic obstructive pulmonary disease, unspecified; Z87.891 Personal history of nicotine dependence; W18.30XA Fall on same level, unspecified, initial encounter; Y93.89 Activity, other specified; Y92.89 Other specified places as the place of occurrence of the external cause; Y99.9 Unspecified external cause status
CPT/HCPCS: 36415; 71010; 80048; 82040; 83880; 84484; 85025; 93005; 96360; 99285; J7030